=== PATIENT | female | born 1950 | race Hispanic/Latino ===

== ENCOUNTER 2020-10-08 00:09 | Emergency (ER) | payer MEDICARE ==
[~2020-10-08] VITALS: Ht 152.4 cm; Wt 88.5 kg
[~2020-10-08 00:09] MED LIST: ALBU8.5H3 IH; HYDR-4068 PO; LEVO500T89 PO; ZOLP10TA2 PO
[2020-10-08 00:12] VITALS: BP 154/75
== END 2020-10-08 02:04 | disposition left against medical advice (07) ==
LOC: EDH 00:09
DX: R10.9 Unspecified abdominal pain (principal); M54.9 Dorsalgia, unspecified; Z53.21 Procedure and treatment not carried out due to patient leaving prior to being seen by health care provider